=== PATIENT | male | born 1965 | race Caucasian/White ===

== ENCOUNTER 2016-11-28 14:51 | Observation (INO) | payer OTHER ==
[~2016-11-28] VITALS: Ht 177.8 cm; Wt 141.5 kg
--- NOTE | 2016-11-28 15:16 | EMERGENCY ROOM VISIT NOTE ---
History Report prepared by Brendon: Lew Pérez Under the Supervision of: Dr. Deni Dave D.O. First contact with patient: 14:56 Chief Complaint: CHEST PAIN Stated Complaint: CHEST PAIN History of Present Illness The patient is a 51 year old male who presents to the Emergency Room with complaints of left-sided chest pain that began 1 hour ago. He rates his current pain mild in severity. He notes his pain is better than it was. At this time, he was working at the [employer]. He began to feel dizzy and lightheaded. He was also feeling heart palpations. He then started to feel this chest pain. He took 1 NTG with no relief and had to take a second one. He was told that if he ever had to take two, he needed to call EMS. He received Zofran 4 mg SL and Aspirin 324 mg PO. He has a past medical history of a four vessel bypass surgery in October of this year. Since then, he has had two other occurrences of chest pain that was resolved with only 1 NTG and did not need further treatment. He saw his PCP last week and was told everything looked normal, but he may be "pushing it" a little more than he should. He is currently mildly short of breath. He has a past medical history of hypertension, hyperlipidemia, and depression. He is currently taking Plavix, Buproban, Latuda, and prn Xanax. He denies any fevers or urinary symptoms. He is currently fatigued. Prehospital ECG: NSR 76 lateral t-wave inversion, no ectopy. No previous for comparison. Source of History: patient Onset: 1 hour ago Position: chest (left) Symptom Intensity: mild Quality: sharp Timing: other (Improving) Associated Symptoms: + SOB, + fatigue, No fevers, No urinary symptoms Review of Systems See HPI for pertinent positives & negatives. A total of 10 systems reviewed and were otherwise negative. Past Medical & Surgical Medical Problems: (1) Chest pain (2) HLD (hyperlipidemia) (3) HTN (hypertension) Surgical Problems: (1) H/O four vessel coronary artery bypass graft Family History Omitted secondary to the patient's age. Social History Smoking Status: Current Every Day Smoker Smokeless Tobacco Use: No Drug Use: none Occupation Status: employed Current/Historical Medications Scheduled Amlodipine (Norvasc), 5 MG PO DAILY Aspirin (Aspirin Ec), 81 MG PO DAILY Atorvastatin (Lipitor), 40 MG PO DAILY Bupropion Hcl (Wellbutrin Xl), 300 MG PO DAILY Clopidogrel (Plavix), 75 MG PO DAILY Guaifenesin La (Guaifenesin Er), 600 MG PO DAILY Lisinopril (Zestril), 20 MG PO DAILY Metoprolol Tartrate (Lopressor) (Lopressor), 25 MG PO BID Nitroglycerin (Nitrostat), 0.4 MG UT PRN Omeprazole (Prilosec), 20 MG PO DAILY Potassium Chloride (Klor-Con M20), 1 TAB PO DAILY Scheduled PRN Albuterol Hfa (Ventolin Hfa), 2 PUFFS INH Q6H PRN for SOB/Wheezing Alprazolam (Xanax), 0.5 MG PO TID PRN for Anxiety Diclofenac (Voltaren), 50 MG PO Q8 PRN for Pain Allergies Coded Allergies: No Known Allergies (Unverified , 11/28/16) Physical Exam Vital Signs Date Time Temp Pulse Resp B/P (MAP) Pulse Ox O2 Delivery O2 Flow Rate FiO2 11/28/16 18:14 73 16 162/95 100 Nasal Cannula 2.0 11/28/16 17:21 73 16 159/98 99 Nasal Cannula 2.0 11/28/16 16:13 67 20 136/75 100 Room Air 11/28/16 15:14 96 Room Air 11/28/16 15:03 96 Room Air 11/28/16 15:00 77 11/28/16 14:58 97 Room Air 11/28/16 14:58 37.0 74 20 136/89 97 Room Air Physical Exam GENERAL: Patient is awake, alert, and in no acute distress. Patient is resting comfortably and showing mild signs of anxiety. Appears to be in no pain. EYES: The conjunctivae are clear. The pupils are round and reactive. EARS, NOSE, MOUTH AND THROAT: The nose is without any evidence of any deformity. Mucous membranes are moist tongue is midline NECK: The neck is nontender and supple. RESPIRATORY: Lung sounds are diminished at bilateral bases. Rales are present at both bases as well. CARDIOVASCULAR: Regular rate and rhythm noted there no murmurs rubs or gallops normal S1 normal S2 GASTROINTESTINAL: The abdomen is soft. Bowel sounds are present in all quadrants. Abdomen is nontender MUSCULOSKELETAL/EXTREMITIES: There is no evidence of gross deformity full range of motion is noted in the hips and shoulders SKIN: There is no obvious evidence of any rash. There are no petechiae, pallor or cyanosis noted. Pedal edema bilaterally. No calf tenderness appreciated. NEUROLOGIC: Patient is awake alert and oriented x3. Medical Decision & Procedures ER Provider Diagnostic Interpretation: Radiology results as stated below per my review and radiologist interpretation: CHEST ONE VIEW PORTABLE CLINICAL HISTORY: Chest pain. COMPARISON STUDY: No previous studies for comparison. FINDINGS: Note is made of a 3.7 cm circumscribed round right mid lung nodule. No pneumothorax or pleural effusion is present. There is no consolidation to suggest pneumonia. An azygos fissure is present. The heart is mildly enlarged. There are median sternotomy wires. IMPRESSION: 1. Round 3.7 cm circumscribed right midlung nodule. Correlation with prior imaging studies, if available, is recommended. In the absence of prior studies, a CT of the chest is recommended. Although circumscribed, this nodule is indeterminate. 2. No acute cardiopulmonary findings. Electronically signed by: Ton Pritchett M.D. 11/28/2016 3:56 PM Dictated Date/Time: 11/28/2016 3:53 PM Laboratory Results 11/28/16 14:25 Red Blood Count 4.27, Mean Corpuscular Volume 84.8, Mean Corpuscular Hemoglobin 28.8, Mean Corpuscular Hemoglobin Concent 34.0, Mean Platelet Volume 9.7, Neutrophils (%) (Auto) 64.6, Lymphocytes (%) (Auto) 22.7, Monocytes (%) (Auto) 8.2, Eosinophils (%) (Auto) 3.6, Basophils (%) (Auto) 0.6, Neutrophils # (Auto) 6.50, Lymphocytes # (Auto) 2.29, Monocytes # (Auto) 0.83, Eosinophils # (Auto) 0.36, Basophils # (Auto) 0.06 11/28/16 14:25 Test 11/28/16 14:25 White Blood Count 10.07 K/uL (4.8-10.8) Red Blood Count 4.27 M/uL (4.7-6.1) Hemoglobin 12.3 g/dL (14.0-18.0) Hematocrit 36.2 % (42-52) Mean Corpuscular Volume 84.8 fL (80-100) Mean Corpuscular Hemoglobin 28.8 pg (25-34) Mean Corpuscular Hemoglobin Concent 34.0 g/dl (32-36) Platelet Count 351 K/uL (130-400) Mean Platelet Volume 9.7 fL (7.4-10.4) Neutrophils (%) (Auto) 64.6 % Lymphocytes (%) (Auto) 22.7 % Monocytes (%) (Auto) 8.2 % Eosinophils (%) (Auto) 3.6 % Basophils (%) (Auto) 0.6 % Neutrophils # (Auto) 6.50 K/uL (1.4-6.5) Lymphocytes # (Auto) 2.29 K/uL (1.2-3.4) Monocytes # (Auto) 0.83 K/uL (0.11-0.59) Eosinophils # (Auto) 0.36 K/uL (0-0.5) Basophils # (Auto) 0.06 K/uL (0-0.2) RDW Standard Deviation 45.0 fL (36.4-46.3) RDW Coefficient of Variation 14.6 % (11.5-14.5) Immature Granulocyte % (Auto) 0.3 % Immature Granulocyte # (Auto) 0.03 K/uL (0.00-0.02) Prothrombin Time 10.7 SECONDS (9.0-12.0) Prothromb Time International Ratio 1.0 (0.9-1.1) Activated Partial Thromboplast Time 23.3 SECONDS (21.0-31.0) Partial Thromboplastin Ratio 0.9 Anion Gap 8.0 mmol/L (3-11) Est Creatinine Clear Calc Drug Dose 80.0 ml/min Estimated GFR () 60.7 Estimated GFR (Non- 52.4 BUN/Creatinine Ratio 18.1 (10-20) Calcium Level 8.7 mg/dl (8.5-10.1) Total Bilirubin 0.7 mg/dl (0.2-1) Direct Bilirubin 0.1 mg/dl (0-0.2) Aspartate Amino Transf (AST/SGOT) 16 U/L (15-37) Alanine Aminotransferase (ALT/SGPT) 26 U/L (12-78) Alkaline Phosphatase 106 U/L (45-117) Total Creatine Kinase 273 U/L (39-308) Creatine Kinase MB 5.1 ng/ml (0.5-3.6) Creatine Kinase MB Ratio 1.9 (0-3.0) Troponin I < 0.015 ng/ml (0-0.045) Total Protein 7.1 gm/dl (6.4-8.2) Albumin 3.6 gm/dl (3.4-5.0) Lipase 116 U/L (73-393) Laboratory results per my review. ECG Indication: chest pain Rate (beats per minute): 70 Rhythm: normal sinus Findings: no ectopy, other (Improvement of previously noted lateral t-wave abnormalities) Comparison ECG Date: Previous ECG today Change: Improvement of t-wave abnormalities. ED Course 145: The patient was evaluated in room A11B. A complete history and physical examination were performed. 1709: Upon reevaluation, the patient is resting. I discussed results and treatment plan with him. He verbalizes agreement and understanding. [facility] The patient will be evaluated for further management and care. Medical Decision Differential diagnosis: Etiologies such as cardiac ischemia, aortic dissection, pulmonary embolism, pneumonia, pneumothorax, musculoskeletal, infections, pericarditis, myocarditis , esophageal rupture, gastrointestinal, as well as others were entertained. Nursing notes reviewed. Additional history is obtained from the prehospital personnel. The patient is a 51-year-old male who presented to the emergency department for an evaluation of chest pain. The patient developed chest pain with minimal exertion today. The patient took aspirin as well as nitroglycerin prior to arrival. His symptoms improved somewhat. The patient arrived at the emergency department without discomfort in his chest. He was concerned because he had to take more nitroglycerin than usual to relieve his chest pain. The patient recently had coronary artery bypass grafting. He states he is been compliant with his Plavix but continues to use tobacco. The patient's initial prehospital EKG showed nonspecific T-wave abnormalities which resolved on arrival to the emergency department. I discussed the patient's laboratory and radiographic studies with him. I also discussed the limitations of the emergency department workup for chest pain with him. [facility] They have agreed to evaluate the patient in the emergency department for further management and disposition. Medication Reconcilliation Current Medication List: was personally reviewed by me Blood Pressure Screening Patient's blood pressure: Elevated blood pressure Blood pressure disposition: Elevated BP felt to be situational Consults Time Called: 1700 Consulting Physician: Dr. Alyssa Olvera Hospitalist Returned Call: 1709 I discussed the patient's case with them. The patient will be evaluated for further management. Impression Primary Impression: Exertional chest pain Scribe Attestation The scribe's documentation has been prepared under my direction and personally reviewed by me in its entirety. I confirm that the note above accurately reflects all work, treatment, procedures, and medical decision making performed by me. Departure Information Dispostion Being Evaluated By Hospitalist Referrals No Doctor, Assigned (PCP) Patient Instructions My [facility]
[2016-11-28 15:21] LABS: BASO % 0.6 %; BASO ABS # 0.06 K/uL (0-0.2); COMPLETE YES; EOS % 3.6 %; HEMATOCRIT 36.2 % (42-52); IG% 0.3 %; LYMPH % 22.7 %; LYMPH ABS # 2.29 K/uL (1.2-3.4); MEAN CELL VOLUME 84.8 fL (80-100); MEAN CORPUSCULAR HEMOGLOBIN 28.8 pg (25-34); MEAN PLATELET VOLUME 9.7 fL (7.4-10.4); MONO % 8.2 %; NEUT % 64.6 %; PLATELET COUNT 351 K/uL (130-400); RED BLOOD COUNT 4.27 M/uL (4.7-6.1); WHITE BLOOD COUNT 10.07 K/uL (4.8-10.8)
[2016-11-28 15:30] LABS: PARTIAL THROMBOPLASTIN RATIO 0.9; PROTHROMBIN TIME (PATIENT) 10.7 SECONDS (9.0-12.0)
[2016-11-28 15:39] LABS: ALT/SGPT 26 U/L (12-78); BLOOD UREA NITROGEN 27 mg/dl (7-18); BUN/CREATININE RATIO 18.1 (10-20); CALCIUM 8.7 mg/dl (8.5-10.1); CARBON DIOXIDE 24 mmol/L (21-32); CHLORIDE 108 mmol/L (98-107); GLUCOSE 85 mg/dl (70-99); POTASSIUM 4.2 mmol/L (3.5-5.1); SODIUM 140 mmol/L (136-145)
[2016-11-28 15:44] LABS: ALKALINE PHOSPHATASE 106 U/L (45-117); AST/SGOT 16 U/L (15-37); CKMB/CK RATIO 1.9 (0-3.0)
--- NOTE | 2016-11-28 15:57 | DIAGNOSTIC IMAGING REPORT ---
CHEST ONE VIEW PORTABLE CLINICAL HISTORY: Chest pain. COMPARISON STUDY: No previous studies for comparison. FINDINGS: Note is made of a 3.7 cm circumscribed round right mid lung nodule. No pneumothorax or pleural effusion is present. There is no consolidation to suggest pneumonia. An azygos fissure is present. The heart is mildly enlarged. There are median sternotomy wires. IMPRESSION: 1. Round 3.7 cm circumscribed right midlung nodule. Correlation with prior imaging studies, if available, is recommended. In the absence of prior studies, a CT of the chest is recommended. Although circumscribed, this nodule is indeterminate. 2. No acute cardiopulmonary findings. Electronically signed by: Ton Pritchett M.D. 11/28/2016 3:56 PM Dictated Date/Time: 11/28/2016 3:53 PM
[2016-11-28] MEDS ORDERED: VNTHFA/IN INH (17:25)
[2016-11-28] MEDS ORDERED: BUPRTAB51 PO (17:25)
[2016-11-28] MEDS ORDERED: NTRGSL/4 UT (17:25)
[2016-11-28] MEDS ORDERED: ASPI81TA28 PO (17:25)
[2016-11-28] MEDS ORDERED: METO25TA56 PO (17:25)
[2016-11-28] MEDS ORDERED: PRLSR20 PO (17:25)
[2016-11-28] MEDS ORDERED: MCRK20 PO (17:25)
[2016-11-28] MEDS ORDERED: GUAI1TAB75 PO (17:25)
[2016-11-28] MEDS ORDERED: LISI-725 PO (17:25)
[2016-11-28] MEDS ORDERED: DICL50TA3 PO (17:25)
[2016-11-28] MEDS ORDERED: CLOP1TAB15 PO (17:25)
[2016-11-28] MEDS ORDERED: ATOR-24 PO (17:25)
[2016-11-28] MEDS ORDERED: ALPR-411 PO (17:25)
[2016-11-28] MEDS ORDERED: AMLO-110 PO (17:25)
[2016-11-28] MEDS ORDERED: ALBUTEROL HFA 8 GM INHALER INH PRN (17:45)
[2016-11-28] MEDS ORDERED: NITROGLYCERIN 0.4 MG SL PER TAB CHARGE SL PRN (17:45)
[2016-11-28] MEDS ORDERED: MoRPHine SULFATE 2 MG/ML CARP IV PRN (17:45)
[2016-11-28] MEDS ORDERED: ONDANSETRON INJ 2 MG/ML 2 ML VIAL IV PRN (17:45)
[2016-11-28] MEDS ORDERED: MAGNESIUM HYDROXIDE SUSP 30 ML UDC PO PRN (17:45)
[2016-11-28] MEDS ORDERED: ACETAMINOPHEN 325 MG TAB PO PRN (17:45)
[2016-11-28] MEDS ORDERED: ALUMINUM/MAGNESIUM/SIMETH (MAALOX MAX) 30 ML UDC PO PRN (17:45)
[2016-11-28] MEDS ORDERED: ALPRAZOLAM 0.5 MG TAB PO PRN (17:45)
[2016-11-28] MEDS ORDERED: NITROGLYCERIN 0.4 MG SL PER TAB CHARGE UT SCH (17:45)
--- NOTE | 2016-11-28 18:25 | HISTORY & PHYSICAL EXAMINATION ---
DATE OF ADMISSION: 11/28/2016 CHIEF COMPLAINT: Chest pain. HISTORY OF PRESENT ILLNESS: This is a 51-year-old male with past medical history significant for hypertension, hyperlipidemia, depression and anxiety, CAD status post CABG in October of 2016, presents with chest pain. The patient says he was working at [employer], in [employer] section and in the afternoon he developed chest pain and dizziness, he called his coworker to help and he went back to working place and sat down there, but the chest pain became worse, it was 8/10 in severity, radiating to his shoulder and left arm. He took 1 nitro and waited for 5 minutes, it did not relieve the pain and he took another nitro and his doctors told him that whenever he took second nitro, he needed to call for help and he called EMS and was brought in here. The patient says he had an open heart surgery in October of this year. Since then, he had couple of episodes of chest pain but it got resolved with 1 nitro, this is the first time he took 2 nitros,. Currently, the patient is chest pain free and hemodynamically stable. During the episode he felt lightheaded, sweaty also was nauseous and somewhat short of breath and some mild cough. Denies any fever or chills, no headaches, no blurred vision at this time. No abdominal pain. Normal bowel movements. No diarrhea, no constipation or blood in the stools. Normal bladder movements. No blood in the urine. Denies any swelling in the legs. The patient says he does not snore in the night and does not feel like he is sleep deprived. Yesterday, he worked a little harder and could not sleep at night because of the soreness. The patient's goes to [facility] [place] and his open heart surgery was done in [facility] [place] [place]. ALLERGIES: No known drug allergies. PAST MEDICAL HISTORY: As mentioned above. PAST SURGICAL HISTORY: The patient has a right arm surgery. MEDICATIONS: The patient is on Diclofenac 50mg p.o. q. 8 hours p.r.n., albuterol 2 puffs inhalation q. 6 hours p.r.n., Xanax 0.5 mg p.o. t.i.d. p.r.n., amlodipine 5 mg p.o. daily, aspirin 81 mg p.o. daily, atorvastatin 40 mg p.o. daily, Wellbutrin-XL 300 mg p.o. daily, Plavix 75 mg p.o. daily, guaifenesin ER 600 mg p.o. daily, lisinopril 20 mg p.o. daily, metoprolol 25 mg p.o. b.i.d., nitroglycerin 0.4 mg p.r.n., omeprazole 20 mg p.o. daily, and potassium chloride 20 mEq p.o. daily. FAMILY HISTORY: Significant for father of heart attack at age of 53. Mother of pancreatic cancer. Grandmother has cancer and 2 of his uncles of heart disease. SOCIAL HISTORY: Smokes more than a pack a day for 40 years and since his open heart surgeries, he is trying to quit and currently he only smokes 5 cigarettes everyday. Did not drink alcohol for last 7 years. REVIEW OF SYMPTOMS: As per HPI. Rest of symptoms negative. PHYSICAL EXAMINATION: GENERAL: The patient is morbidly obese, not in distress. VITAL SIGNS: Temperature 37, pulse 73, respiratory rate 16, blood pressure 115/98, oxygen 99% on 2 liters. HEENT: No pallor, no icterus. Pupils equal and reactive to light. NECK: No JVD, no neck masses, no carotid bruits. CARDIOVASCULAR: S1, S2 heard, regular rate and rhythm, no murmur, no gallop. RESPIRATORY SYSTEM: Clear to auscultation bilaterally. No wheezing, no crackles. ABDOMEN: Soft, bowel sounds present. Nontender. No distention. CENTRAL NERVOUS SYSTEM: Cranial nerves II-XII grossly intact. Nonfocal. EXTREMITIES: No edema, no erythema. LABORATORIES: Sodium 140, potassium 4.2, chloride 108, bicarbonate 24, BUN 27, creatinine 1.5, serum glucose 85. Calcium 8.7, total bilirubin 0.7, direct bilirubin 0.1, AST 16, ALT 26, alkaline phosphatase 106, total creatinine kinase 273. Troponin I less than 0.015. Lipase 116. WBC 10.07, hemoglobin 12.3, hematocrit 36.2, platelets 351. PT 10.7, INR 1, PTT 23.3. IMAGING DATA: Chest x-ray around 3.7 cm circumscribed right middle lung nodule. No acute cardiopulmonary findings. EKG shows normal sinus rhythm with rate of 70 and nonspecific T-wave abnormality. No previous EKG to compare. ASSESSMENT AND PLAN: This is a 51-year-old male who presents with chest pain. 1. Chest pain, history of coronary artery disease disease and recent coronary artery bypass grafting in October 2016. Initial electrocardiogram and troponin negative. Currently chest pain free. We will observe on tele floor. Will check Serial cardiac enzymes and echocardiogram. Consult cardiology in a.m. for further recommendations. Continue home medication of aspirin and Plavix, beta renny and statin. Patient says he is compliant with all his medications. 2. Hypercholesterolemia. Continue statin. Will check his fasting lipid profile. 3. Hypertension. Continue his Norvasc, lisinopril, and metoprolol. We will monitor his blood pressure. 4. Acute renal failure vs chronic kidney disease. Patient's presents creatinine is 1.5 we do not know the baseline. Will follow the labs. 5. History of depression and anxiety. Continue Wellbutrin, Xanax p.r.n. 6. Tobacco abuse, on albuterol inhaler, trying to quit. 7. Gastroesophageal reflux disease, on proton pump inhibitor. 8. Lung nodule. patient says he has it for some time and his [place] hospital is following it.And it has been stable. 9. Deep vein thrombosis prophylaxis Scds 10. Disposition: Observation tele floor. Expect to discharge home and follow with his family doctor. 11. CODE STATUS: Level 1 full code. MTDD
[2016-11-28] MEDS ORDERED: IV FLUIDS COMPLETED PRN (19:15)
[2016-11-28 19:51] VITALS: BP 123/80; PULSE 73; TEMP 36.7; O2SAT 97; Ht 177.8 cm; Wt 141.5 kg
[2016-11-28] MEDS: SODIUM CHLORIDE 0.9% 1000ML 1,000 ML IV SCH ×2 (21:30→21:36)
[2016-11-28] MEDS: METOPROLOL TARTRATE 25 MG TAB PO SCH (21:36)
[2016-11-29 00:23] VITALS: BP 129/72; PULSE 77; TEMP 36.8; O2SAT 96
[2016-11-29 04:01] VITALS: BP 163/80; PULSE 71; TEMP 36.5; O2SAT 96
[2016-11-29 06:19] LABS: BASO % 0.5 %; BASO ABS # 0.05 K/uL (0-0.2); COMPLETE YES; EOS % 3.7 %; HEMATOCRIT 34.9 % (42-52); IG% 0.4 %; LYMPH % 18.1 %; LYMPH ABS # 1.92 K/uL (1.2-3.4); MEAN CELL VOLUME 85.5 fL (80-100); MEAN CORPUSCULAR HEMOGLOBIN 28.7 pg (25-34); MEAN CORPUSCULAR HGB CONC 33.5 g/dl (32-36); MEAN PLATELET VOLUME 8.8 fL (7.4-10.4); MONO % 4.7 %; NEUT % 72.6 %; PLATELET COUNT 276 K/uL (130-400); RED BLOOD COUNT 4.08 M/uL (4.7-6.1); WHITE BLOOD COUNT 10.62 K/uL (4.8-10.8)
[2016-11-29 06:54] LABS: BLOOD UREA NITROGEN 22 mg/dl (7-18); BUN/CREATININE RATIO 18.5 (10-20); CALCIUM 8.6 mg/dl (8.5-10.1); CARBON DIOXIDE 28 mmol/L (21-32); CHLORIDE 107 mmol/L (98-107); GLUCOSE 101 mg/dl (70-99); MAGNESIUM 2.1 mg/dl (1.8-2.4); POTASSIUM 4.1 mmol/L (3.5-5.1); SODIUM 138 mmol/L (136-145)
[2016-11-29 06:59] LABS: CHOLESTEROL 112 mg/dl (0-200); CKMB/CK RATIO 2.3 (0-3.0); HDL CHOLESTEROL 28 mg/dl; LDL CHOLESTEROL CALCULATED 54 mg/dl; TRIGLYCERIDES 148 mg/dl (0-150); VERY LOW DENSITY LIPOPROT CALC 30 mg/dl
[2016-11-29] MEDS ORDERED: PERFLUTREN LIPID MICROSPHERE (DEFINITY) IV ONE (07:49)
[2016-11-29] MEDS: METOPROLOL TARTRATE 25 MG TAB PO SCH (07:59)
[2016-11-29 08:03] VITALS: BP 147/99; PULSE 76; TEMP 37; O2SAT 95
[2016-11-29] MEDS ORDERED: BuPROPion XL 300 MG TABCR PO SCH (09:00)
[2016-11-29] MEDS ORDERED: ATORVASTATIN 40 MG TAB PO SCH (09:00)
[2016-11-29] MEDS ORDERED: CLOPIDOGREL BISULFATE 75 MG TAB PO SCH (09:00)
[2016-11-29] MEDS ORDERED: PANTOprazole SOD 40 MG TAB PO SCH (09:00)
[2016-11-29] MEDS ORDERED: ASPIRIN 81 MG ECTAB PO SCH (09:00)
[2016-11-29] MEDS ORDERED: AMLODIPINE BESYLATE 5 MG TAB PO SCH (09:00)
[2016-11-29] MEDS ORDERED: GUAIFENESIN 600 MG TABCR PO SCH (09:00)
[2016-11-29] MEDS ORDERED: LISINOPRIL 20 MG TAB PO SCH (09:00)
[2016-11-29] MEDS ORDERED: POTASSIUM CHLORIDE 20 MEQ TABCR PO SCH (09:00)
[2016-11-29] MEDS ORDERED: ISOSORBIDE MONONITRATE 30 MG TABCR PO ONE (11:19)
[2016-11-29 11:25] VITALS: BP 123/75; PULSE 72; TEMP 36.4; O2SAT 97
--- NOTE | 2016-11-29 13:21 | ECHOCARDIOGRAM REPORT ---
*NOTICE TO RECEIVING LIBERTARIAN AGENCY This information is strictly Confidential and protected under [place] law. [place] law prohibits you from making any further disclosure of this information unless further disclosure is expressly permitted by the written consent of the person to whom it pertains or is authorized by law. A general authorization for the release of medical or other information is not sufficient for this purpose. Hospital accepts no responsibility if the information is made available to any other person, INCLUDING THE PATIENT. Interpretation Summary * Name: MODESTA DE LEON Study Date: 11/29/2016 07:19 AM BP: 163/80 mmHg * Patient Location: C.2T\S\S241\S\2 HR: 71 * : 1965 (M/d/yyyy) Gender: Male Height: 68 in * Age: 51 yrs Ethnicity: [place] Weight: 321 lb * Ordering Physician: Evaristo Shah * Referring Physician: Self, Referred * Performed By: Rachna Inman RDCS * * Reason For Study: Chest pain * BSA: 2.5 m2 * The study was technically limited. * There is no comparison study available. * -- Conclusions -- * Ejection Fraction = 55-60%. * There is moderate concentric left ventricular hypertrophy. * The mid lateral wall is hypokinetic. * Septal motion is consistent with post-operative state. * There is mild mitral regurgitation. * Grade I diastolic dysfunction, (abnormal relaxation pattern). Procedure Details * A complete two-dimensional transthoracic echocardiogram was performed (2D, M-mode, Doppler and color flow Doppler). * A contrast injection of Definity was performed to improve assessment of LV function. * Contrast was injected into an intravenous site in the left arm. * One vial of Definity ultrasound contrast was diluted in normal saline to a total volume of 10 ml. A total of '3' ml of solution was administered during imaging. * Lot # [id number] of Definity utilized for procedure. * Expiration date NOV 27. * The attending nurse who injected the contrast agent was Mat Gay RN. Left Ventricle * The left ventricle is normal in size. * There is moderate concentric left ventricular hypertrophy. * There is normal left ventricular wall thickness. * Ejection Fraction = 55-60%. * Left ventricular systolic function is normal. * Septal motion is consistent with post-operative state. * The mid lateral wall is hypokinetic. Right Ventricle * The right ventricle is normal size. * The right ventricular systolic function is normal as assessed by tricuspid annular plane systolic excursion (TAPSE) (normal >1.5 cm). Atria * The left atrium is mildly dilated. * Right atrial size is normal. * There is no evidence of atrial septal defect, but resolution does not allow assessment for a patent foramen ovale. Mitral Valve * The mitral valve is normal. * There is no mitral valve stenosis. * There is mild mitral regurgitation. Tricuspid Valve * The tricuspid valve is normal. * There is no tricuspid stenosis. * Significant tricuspid regurgitation is absent. Aortic Valve * The aortic valve is trileaflet. * Aortic stenosis is absent. * There is no significant aortic regurgitation. Pulmonic Valve * The pulmonary valve is not well seen, but the Doppler examination is normal without significant regurgitation or stenosis. Great Vessels * The aortic root and proximal ascending aorta are normal sized. Pericardium/Pleural * There is no pericardial effusion. Great Vessels * Normal inferior vena cava size and collapsability with sniff indicates a normal right atrial pressure of 3 mmHg Left Ventricular Diastolic Function * Grade I diastolic dysfunction, (abnormal relaxation pattern). MMode 2D Measurements and Calculations IVSd 1.5 cm LVIDd 4.9 cm LVIDs 3.2 cm LVPWd 1.6 cm IVS/LVPW 0.93 FS 33.7 % EDV(Teich) 111.9 ml ESV(Teich) 42.2 ml EF(Teich) 62.3 % EDV(cubed) 116.4 ml ESV(cubed) 34.0 ml EF(cubed) 70.8 % LV mass(C)d 332.3 grams LV mass(C)dI 133.0 grams/m\S\2 CO(Teich) 4.7 l/min CI(Teich) 1.9 l/min/m\S\2 SV(Teich) 69.7 ml SI(Teich) 27.9 ml/m\S\2 CO(cubed) 5.6 l/min CI(cubed) 2.2 l/min/m\S\2 SV(cubed) 82.5 ml SI(cubed) 33.0 ml/m\S\2 Ao root diam 3.5 cm Ao root area 9.9 cm\S\2 ACS 2.4 cm LA dimension 3.9 cm asc Aorta Diam 3.8 cm LA/Ao 1.1 LVOT diam 2.0 cm LVOT area 3.3 cm\S\2 LVAd ap4 40.3 cm\S\2 LVLd ap4 9.0 cm EDV(MOD-sp4) 149.0 ml LVAs ap4 24.2 cm\S\2 LVLs ap4 7.6 cm ESV(MOD-sp4) 64.5 ml EF(MOD-sp4) 56.7 % LVAd ap2 42.9 cm\S\2 LVLd ap2 9.7 cm EDV(MOD-sp2) 156.0 ml LVAs ap2 22.2 cm\S\2 LVLs ap2 6.8 cm ESV(MOD-sp2) 63.0 ml EF(MOD-sp2) 59.6 % CO(MOD-sp4) 5.7 l/min CI(MOD-sp4) 2.3 l/min/m\S\2 SV(MOD-sp4) 84.5 ml SI(MOD-sp4) 33.8 ml/m\S\2 CO(MOD-sp2) 6.3 l/min CI(MOD-sp2) 2.5 l/min/m\S\2 SV(MOD-sp2) 93.0 ml SI(MOD-sp2) 37.2 ml/m\S\2 Doppler Measurements and Calculations MV E max amalia 98.0 cm/sec MV A max amalia 96.0 cm/sec MV E/A 1.0 MV dec time 0.19 sec Ao V2 max 150.8 cm/sec Ao max PG 9.1 mmHg Ao max PG (full) 2.9 mmHg CHRISTINE(V,A) 2.7 cm\S\2 CHRISTINE(V,D) 2.7 cm\S\2 LV V1 max PG 6.2 mmHg LV V1 max 124.2 cm/sec MR max amalia 508.3 cm/sec MR max PG 103.3 mmHg MR mean amalia 401.5 cm/sec MR mean PG 72.1 mmHg MR VTI 181.0 cm PA V2 max 134.4 cm/sec PA max PG 7.2 mmHg PA acc slope 907.9 cm/sec\S\2 PA acc time 0.08 sec PI max amalia 209.0 cm/sec PI max PG 17.5 mmHg PI dec slope 249.4 cm/sec\S\2 PI P1/2t 245.4 msec PA pr(Accel) 44.1 mmHg
[2016-11-29] MEDS ORDERED: IMDSR30 PO (13:58)
--- NOTE | 2016-11-29 14:00 | Discharge Instructions ---
Discharge Instructions Date of Service Nov 29, 2016. Admission Reason for Admission: Chest Pain Discharge Discharge Diagnosis / Problem: chest pain Discharge Goals Goal(s): Decrease discomfort, Improve function Activity Recommendations Activity Limitations: resume your previous activity . Instructions / Follow-Up Instructions / Follow-Up FOLLOWUP WITH FAMILY DOCTOR, CARDIOLOGY AND PSYCHIATRY SCHEDULED ON COMING WEDNESDAY. PLEASE TRY TO AVOID DICLOFENAC, ALEVE, MOTRIN OR ADVIL OR ANY OTHER NSAID'S FCI USE CAN CAUSE HEART ATTACKS, STOMACH ULCERS AND KIDNEY FAILURE. Current Hospital Diet Patient's current hospital diet: AHA Diet (Heart Healthy) Discharge Diet Recommended Diet: AHA Diet (Heart Healthy) Pending Studies Studies pending at discharge: no Laboratory Results Hemoglobin A1c Test 11/29/16 06:07 Range/Units Lipid Panel Test 11/29/16 06:07 Range/Units Triglycerides Level 148 0-150 mg/dl Cholesterol Level 112 0-200 mg/dl HDL Cholesterol 28 mg/dl Cholesterol/HDL Ratio 4.0 LDL Cholesterol, Calculated 54 mg/dl Medical Emergencies . Who to Call and When: Medical Emergencies: If at any time you feel your situation is an emergency, please call 911 immediately. . Non-Emergent Contact Non-Emergency issues call your: Primary Care Provider . . "Provider Documentation" section prepared by Evaristo Shah. . VTE Core Measure Inpt VTE Proph given/why not?: SCD's
[2016-11-29 14:02] VITALS: BP 123/75; PULSE 72; TEMP 36.4; O2SAT 97
--- NOTE | 2016-11-29 16:57 | CARDIOLOGY CONSULTATION ---
DATE OF CONSULTATION: 11/29/2016 REFERRING PHYSICIAN: Too Smith MD REASON FOR CONSULTATION: Chest pain, recent bypass surgery. HISTORY OF PRESENT ILLNESS: Mr. Wiggins is a 51-year-old gentleman who is not known to the local medical community. He resides in [place], [place]. Reports recent myocardial infarction occurring approximately 3 months ago. Initially, he had left the hospital AMA at that time. He subsequently followup with [facility] where abnormal stress testing led to a cardiac catheterization. While the patient was awaiting percutaneous intervention, he suffered a second myocardial infarction where an emergent cardiac catheterization demonstrated severe multivessel disease. He underwent coronary artery bypass grafting x4 in early October. Since that time, the patient has used sublingual nitroglycerin on 2 occasions. He was instructed to seek medical attention if he required 2 sublingual nitroglycerins for treatment of chest pain. Yesterday, the patient was working at [employer] despite the objections of his physicians. He had worked a full day on Wednesday and then a half today yesterday. He developed lightheadedness, flushing, followed by chest heaviness and tightness. He sat and rested. He noted the weather was quite warm. He became somewhat diaphoretic. One sublingual nitroglycerin did not relieve his pain. After 5 minutes, he took a second nitro, which took approximately 10 minutes to relieve his discomfort. He came to the Emergency Department. ECG demonstrated nonspecific T-wave abnormality. Cardiac enzymes are undetectable. The patient noted to be mildly dehydrated with elevated creatinine. Physical exam is clear. He had a radial graft implanted. He has not been treated with Cardizem; however, taking Norvasc on a daily basis. Other medications as noted below. Overnight, the patient rested comfortably. No recurrent chest pain. No dysrhythmias on telemetry. Resting 2D transthoracic echo is pending. REVIEW OF SYSTEMS: The pertinent positive noted above, a comprehensive 10-system review is otherwise negative. PAST MEDICAL HISTORY: 1. Myocardial infarction x2 over the past 3 months, ultimately leading to coronary artery bypass grafting x4. 2. Hypertension. 3. Dyslipidemia. 4. Depression. PAST SURGICAL HISTORY: Coronary artery bypass grafting x4 in early to mid October. FAMILY HISTORY: Significant for premature coronary disease in first degree relatives. SOCIAL HISTORY: He is a lifelong smoker with a nearly [id number] history. 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 ALLERGIES: No known drug allergies. CURRENT HOME MEDICATIONS: 1. Amlodipine 5 mg daily. 2. Aspirin 81 mg daily. 3. Atorvastatin 40 mg. 4. Wellbutrin-XL 300 mg daily. 5. Plavix 75 mg daily. 6. Guaifenesin 600 mg daily. 7. Lisinopril 20 mg daily. 8. Lopressor 25 mg twice daily. 9. Nitroglycerin as needed. 10. Prilosec 20 mg daily. 11. KCl 20 mEq daily. 12. Albuterol as needed. 13. Xanax as needed. 14. Voltaren as needed. DIAGNOSTIC DATA: Chest x-ray on admission demonstrates 3.7-cm right mid lung nodule. LABORATORY DATA: Initial creatinine 1.50 with a repeat creatinine of 1.20 this morning, sodium 138, potassium 4.1, and chloride 107. Troponins are negative x3 sets. LDL is 54. White blood cell count 10.62, hemoglobin is 11.7, and platelet count is 276. INR is 1.0. PHYSICAL EXAMINATION: VITAL SIGNS: Temperature is 37 degrees, heart rate is 76 beats per minute, blood pressure is 147/99, respiratory rate is 18 breaths per minute, and SaO2 95% on room air. GENERAL: NAD, poor dentition, awake, alert and oriented x3, obese. HEENT: Mucous membranes are moist. No scleral icterus. NECK: Supple without JVD or HJR. No carotid bruit. HEART: Regular with a normal S1 and S2. There is no murmur, rub, or gallop. LUNGS: Clear without rales, rhonchi or wheeze. ABDOMEN: Soft, nontender. No rebound or guarding. Normal bowel sounds. EXTREMITIES: Demonstrate right upper extremity radial artery scar. There is no clubbing, cyanosis, or edema. NEUROLOGIC: Demonstrates no focal deficit. FINAL IMPRESSION: 1. A 51-year-old male presents with anginal chest pains, requiring 2 sublingual nitroglycerin. Symptoms secondary to excessive heat, dehydration, over exertion being relatively close to recent coronary artery bypass surgery. He has been asymptomatic overnight. Cardiac enzymes are not significantly elevated. Resting echo is pending. 2. Hypertension - borderline control. 3. Dyslipidemia - controlled. 4. Active tobacco abuse. 5. Right middle lobe lung nodule. 6. Acute renal insufficiency secondary to volume depletion. PLAN AND RECOMMENDATIONS: I had a long discussion with the patient regarding his work schedule, particularly of the physical nature in the excessive heat of mid November. He was advised to avoid working this soon after bypass surgery. He agrees that he will not return to work at this time. I suspect some of his symptoms may be due to vasospasm in the setting of radial artery graft bypass placement. He is taking Norvasc; however, I will add low-dose isosorbide monohydrate 30 mg daily. We discussed the results of his lab testing including negative cardiac enzymes. We also discussed possibly remaining in hospital for repeat stress testing on Wednesday for further risk stratification. The patient declines further inpatient testing at this time. He is agreeable for close followup with his spooler at the [facility] on Wednesday, which is already scheduled. We reviewed the proper use of sublingual nitroglycerin. He is agreeable to return to the hospital with any recurrent symptoms during that time. Other cardiovascular medications will be continued as previously ordered. I will review resting 2D transthoracic echo when available. The patient will be discharged to home today with the addition of isosorbide monohydrate. All questions were answered to his satisfaction. Smoking cessation also advised. OSMAR
--- NOTE | 2016-11-29 20:06 | Progress Note ---
Internal Med Progress Note Date of Service: Nov 29, 2016. Provider Documentation: SUBJECTIVE: resting comfortably denies chest pain or sob afebrile no nausea wants to be discharged OBJECTIVE: Vital Signs-as noted below Exam: General-alert and awake. Not in distress ENT-normal hearing Neck-no neck masses Lungs-cta b/l no wheezing or crackles Heart-s1 and s2 heard regular rhythm no murmurs Abdomen-soft bowel sounds present non tender no distension Extremities- no erythema Neuro-alert and awake moves extremities Lab data as noted below. ASSESSMENT & PLAN: This is a 51-year-old male who presents with chest pain. 1. Chest pain, history of coronary artery disease disease and recent coronary artery bypass grafting in October 2016. Initial electrocardiogram and troponin negative. Currently chest pain free. serial ce and echo unremarkable cardiology added imdur to continue aspirin plavix , b renny and stain f/u with cardiology. 2. Hypercholesterolemia. Continue statin. Lipid profile at goal except hdl 28. 3. Hypertension. Continue his Norvasc, lisinopril, and metoprolol. added Imdur. f/u with pcp and cardiology. 4. Acute renal failure vs chronic kidney disease. Patient's presents creatinine is 1.5 we do not know the baseline. cr 1.2 today. 5. History of depression and anxiety. Continue Wellbutrin, Xanax p.r.n. 6. Tobacco abuse, on albuterol inhaler, trying to quit. 7. Gastroesophageal reflux disease, on proton pump inhibitor. 8. Lung nodule. patient says he has it for some time and his [place] [facility] is following it.And it has been stable. discharged home Vital Signs: Date Time Temp Pulse Resp B/P (MAP) Pulse Ox O2 Delivery O2 Flow Rate FiO2 11/29/16 14:02 36.4 72 19 97 Room Air 11/29/16 12:00 Nasal Cannula 2.0 11/29/16 11:25 36.4 72 19 123/75 (91) 97 Room Air 11/29/16 08:03 37.0 76 18 147/99 (115) 95 Room Air 11/29/16 08:00 Nasal Cannula 2.0 11/29/16 04:01 36.5 71 18 163/80 (107) 96 Nasal Cannula 3.0 11/29/16 04:00 Room Air 8/20/17 00:23 36.8 77 20 129/72 (91) 96 Nasal Cannula 3.0 11/29/16 00:00 Nasal Cannula 2.0 Lab Results: Results Past 24 Hours Test 11/28/16 22:06 11/29/16 06:07 Range/Units Total Creatine Kinase 196 134 39-308 U/L Creatine Kinase MB 3.9 3.1 0.5-3.6 ng/ml Creatine Kinase MB Ratio 2.0 2.3 0-3.0 Troponin I < 0.015 < 0.015 0-0.045 ng/ml White Blood Count 10.62 4.8-10.8 K/uL Red Blood Count 4.08 4.7-6.1 M/uL Hemoglobin 11.7 14.0-18.0 g/dL Hematocrit 34.9 42-52 % Mean Corpuscular Volume 85.5 80-100 fL Mean Corpuscular Hemoglobin 28.7 25-34 pg Mean Corpuscular Hemoglobin Concent 33.5 32-36 g/dl Platelet Count 276 130-400 K/uL Mean Platelet Volume 8.8 7.4-10.4 fL Neutrophils (%) (Auto) 72.6 % Lymphocytes (%) (Auto) 18.1 % Monocytes (%) (Auto) 4.7 % Eosinophils (%) (Auto) 3.7 % Basophils (%) (Auto) 0.5 % Neutrophils # (Auto) 7.72 1.4-6.5 K/uL Lymphocytes # (Auto) 1.92 1.2-3.4 K/uL Monocytes # (Auto) 0.50 0.11-0.59 K/uL Eosinophils # (Auto) 0.39 0-0.5 K/uL Basophils # (Auto) 0.05 0-0.2 K/uL RDW Standard Deviation 45.4 36.4-46.3 fL RDW Coefficient of Variation 14.5 11.5-14.5 % Immature Granulocyte % (Auto) 0.4 % Immature Granulocyte # (Auto) 0.04 0.00-0.02 K/uL Sodium Level 138 136-145 mmol/L Potassium Level 4.1 3.5-5.1 mmol/L Chloride Level 107 98-107 mmol/L Carbon Dioxide Level 28 21-32 mmol/L Anion Gap 3.0 3-11 mmol/L Blood Urea Nitrogen 22 7-18 mg/dl Creatinine 1.20 0.60-1.40 mg/dl Est Creatinine Clear Calc Drug Dose 101.1 ml/min Estimated GFR () 79.5 Estimated GFR (Non- 68.6 BUN/Creatinine Ratio 18.5 10-20 Random Glucose 101 70-99 mg/dl Calcium Level 8.6 8.5-10.1 mg/dl Magnesium Level 2.1 1.8-2.4 mg/dl Triglycerides Level 148 0-150 mg/dl Cholesterol Level 112 0-200 mg/dl HDL Cholesterol 28 mg/dl LDL Cholesterol, Calculated 54 mg/dl VLDL Cholesterol, Calculated 30 mg/dl Cholesterol/HDL Ratio 4.0
--- NOTE | 2016-11-29 20:15 | Discharge Summary ---
Discharge Summary Date of Service Nov 29, 2016. Discharge Summary Admission Date: Nov 28, 2016 at 17:35 Discharge Date: Nov 29, 2016 Discharge Disposition: Home Principal Diagnosis: CHEST PAIN Secondary Diagnoses/Problems: hypertension, hyperlipidemia, depression and anxiety, CAD status post CABG in October of 2016 Procedures: ECHO: Ejection Fraction = 55-60%. * There is moderate concentric left ventricular hypertrophy. * The mid lateral wall is hypokinetic. * Septal motion is consistent with post-operative state. * There is mild mitral regurgitation. * Grade I diastolic dysfunction, (abnormal relaxation pattern). CXR: 1. Round 3.7 cm circumscribed right midlung nodule. Correlation with prior imaging studies, if available, is recommended. In the absence of prior studies, a CT of the chest is recommended. Although circumscribed, this nodule is indeterminate. 2. No acute cardiopulmonary findings. Consultations: CARDIOLOGY Medication Reconciliation New Medications: Isosorbide Mononitrate (Isosorbide Mononitrate ER) 30 Mg Tabcr 30 MG PO QAM, #30 2 Refills Continued Medications: Albuterol Hfa (Ventolin Hfa) 200 Puffs/38259 Mcg Aers 2 PUFFS INH Q6H PRN for SOB/Wheezing, #1 INHALER Alprazolam (Xanax) 0.5 Mg Tab 0.5 MG PO TID PRN for Anxiety, TAB Amlodipine (Norvasc) 5 Mg Tab 5 MG PO DAILY, TAB Aspirin (Aspirin Ec) 81 Mg Tab 81 MG PO DAILY Atorvastatin (Lipitor) 40 Mg Tab 40 MG PO DAILY, TAB Bupropion Hcl (Wellbutrin Xl) 300 Mg Tab 300 MG PO DAILY, TAB Clopidogrel (Plavix) 75 Mg Tab 75 MG PO DAILY, TAB Guaifenesin La (Guaifenesin Er) 600 Mg Tabcr 600 MG PO DAILY Lisinopril (Zestril) 20 Mg Tab 20 MG PO DAILY, TAB Metoprolol Tartrate (Lopressor) (Lopressor) 25 Mg Tab 25 MG PO BID, TAB Nitroglycerin (Nitrostat) 0.4 Mg Tab 0.4 MG UT PRN, BTL Omeprazole (Prilosec) 20 Mg Capcr 20 MG PO DAILY, CAP Potassium Chloride (Klor-Con M20) 20 Meq Tabcr 1 TAB PO DAILY Discontinued Medications: Diclofenac (Voltaren) 50 Mg Tabec 50 MG PO Q8 PRN for Pain, TAB Admission Information HPI (per Admitting provider): : This is a 51-year-old male with past medical history significant for hypertension, hyperlipidemia, depression and anxiety, CAD status post CABG in October of 2016, presents with chest pain. The patient says he was working at [employer], in [place] section and in the afternoon he developed chest pain and dizziness, he called his coworker to help and he went back to working place and sat down there, but the chest pain became worse, it was 8/10 in severity, radiating to his shoulder and left arm. He took 1 nitro and waited for 5 minutes, it did not relieve the pain and he took another nitro and his doctors told him that whenever he took second nitro, he needed to call for help and he called EMS and was brought in here. The patient says he had an open heart surgery in October of this year. Since then, he had couple of episodes of chest pain but it got resolved with 1 nitro, this is the first time he took 2 nitros,. Currently, the patient is chest pain free and hemodynamically stable. During the episode he felt lightheaded, sweaty also was nauseous and somewhat short of breath and some mild cough. Denies any fever or chills, no headaches, no blurred vision at this time. No abdominal pain. Normal bowel movements. No diarrhea, no constipation or blood in the stools. Normal bladder movements. No blood in the urine. Denies any swelling in the legs. The patient says he does not snore in the night and does not feel like he is sleep deprived. Yesterday, he worked a little harder and could not sleep at night because of the soreness. The patient's goes to [facility] [place] and his open heart surgery was done in [facility] at [place], [place]. Physical Exam (per Admitting): GENERAL: The patient is morbidly obese, not in distress. VITAL SIGNS: Temperature 37, pulse 73, respiratory rate 16, blood pressure 115/98, oxygen 99% on 2 liters. HEENT: No pallor, no icterus. Pupils equal and reactive to light. NECK: No JVD, no neck masses, no carotid bruits. CARDIOVASCULAR: S1, S2 heard, regular rate and rhythm, no murmur, no gallop. RESPIRATORY SYSTEM: Clear to auscultation bilaterally. No wheezing, no crackles. ABDOMEN: Soft, bowel sounds present. Nontender. No distention. CENTRAL NERVOUS SYSTEM: Cranial nerves II-XII grossly intact. Nonfocal. EXTREMITIES: No edema, no erythema Hospital Course This is a 51-year-old male who presents with chest pain. 1. Chest pain, history of coronary artery disease disease and recent coronary artery bypass grafting in October 2016. Initial electrocardiogram and troponin negative. Currently chest pain free. serial ce and echo unremarkable cardiology added imdur to continue aspirin plavix , b renny and stain f/u with cardiology. 2. Hypercholesterolemia. Continue statin. Lipid profile at goal except hdl 28. 3. Hypertension. Continue his Norvasc, lisinopril, and metoprolol. added Imdur. f/u with pcp and cardiology. 4. Acute renal failure vs chronic kidney disease. Patient's presents creatinine is 1.5 we do not know the baseline. cr 1.2 today. 5. History of depression and anxiety. Continue Wellbutrin, Xanax p.r.n. 6. Tobacco abuse, on albuterol inhaler, trying to quit. 7. Gastroesophageal reflux disease, on proton pump inhibitor. 8. Lung nodule. patient says he has it for some time and his [place] hospital is following it.And it has been stable. discharged home Total time spent on discharge = 35MINUTES This includes examination of the patient, discharge planning, medication reconciliation, and communication with other providers. Discharge Instructions Discharge Instructions Date of Service Nov 29, 2016. Admission Reason for Admission: Chest Pain Discharge Discharge Diagnosis / Problem: chest pain Discharge Goals Goal(s): Decrease discomfort, Improve function Activity Recommendations Activity Limitations: resume your previous activity . Instructions / Follow-Up Instructions / Follow-Up FOLLOWUP WITH FAMILY DOCTOR, CARDIOLOGY AND PSYCHIATRY SCHEDULED ON COMING WEDNESDAY. PLEASE TRY TO AVOID DICLOFENAC, ALEVE, MOTRIN OR ADVIL OR ANY OTHER NSAID'S DRAFTER CASTINGS USE CAN CAUSE HEART ATTACKS, STOMACH ULCERS AND KIDNEY FAILURE. Current Hospital Diet Patient's current hospital diet: AHA Diet (Heart Healthy) Discharge Diet Recommended Diet: AHA Diet (Heart Healthy) Pending Studies Studies pending at discharge: no Laboratory Results Hemoglobin A1c Test 11/29/16 06:07 Range/Units Lipid Panel Test 11/29/16 06:07 Range/Units Triglycerides Level 148 0-150 mg/dl Cholesterol Level 112 0-200 mg/dl HDL Cholesterol 28 mg/dl Cholesterol/HDL Ratio 4.0 LDL Cholesterol, Calculated 54 mg/dl Medical Emergencies . Who to Call and When: Medical Emergencies: If at any time you feel your situation is an emergency, please call 911 immediately. . Non-Emergent Contact Non-Emergency issues call your: Primary Care Provider . . "Provider Documentation" section prepared by Evaristo Shah. . VTE Core Measure Inpt VTE Proph given/why not?: SCD's
[2016-11-30 07:23] LABS: ESTIMATED AVERAGE GLUCOSE 105 mg/dl; HA1C FLAG Normal (Normal)
[2016-11-30] MEDS ORDERED: ISOSORBIDE MONONITRATE 30 MG TABCR PO SCH (09:00)
== END 2016-11-29 14:16 | disposition home or self-care (01) ==
LOC: C.EDA 14:55 → C.2T 17:35 → ENRESERV 18:12
PROVIDERS: ADMIT Internal Medicine; ATTEND Internal Medicine
DX: R07.9 Chest pain, unspecified (principal); I25.10 Atherosclerotic heart disease of native coronary artery without angina pectoris; I10 Essential (primary) hypertension; E78.5 Hyperlipidemia, unspecified; R94.4 Abnormal results of kidney function studies; K21.9 Gastro-esophageal reflux disease without esophagitis; R91.1 Solitary pulmonary nodule; E66.01 Morbid (severe) obesity due to excess calories; F41.9 Anxiety disorder, unspecified; F32.9 Major depressive disorder, single episode, unspecified; F17.210 Nicotine dependence, cigarettes, uncomplicated; Z95.1 Presence of aortocoronary bypass graft; Z79.82 Long term (current) use of aspirin; Z79.899 Other long term (current) drug therapy